=== PATIENT | female | born 1985 | race Hispanic/Latino ===

== ENCOUNTER 2017-10-15 00:23 | Emergency (ER) | payer OTHER ==
[~2017-10-15] VITALS: Ht 167.6 cm; Wt 70.3 kg
[~2017-10-15 00:23] MED LIST: FLAGYL500 MG PO; KEFLEX500 MG PO
== END 2017-10-15 03:10 | disposition home or self-care (01) ==
LOC: ED 00:23
DX: S91.332A Puncture wound without foreign body, left foot, initial encounter (principal); W22.8XXA Striking against or struck by other objects, initial encounter; F17.200 Nicotine dependence, unspecified, uncomplicated
CPT/HCPCS: 73630; 90471; 90715; 99283